=== PATIENT | female | born 1990 | race Caucasian/White ===

== ENCOUNTER 2021-08-04 16:49 | Emergency (ER) | payer MEDICAID ==
--- NOTE | 2021-08-04 16:53 | EDM.PDOC ---
ED HPI GENERAL MEDICAL PROBLEM - General Chief Complaint: Respiratory Problem Stated Complaint: SOB Time Seen by Provider: 08/04/21 17:20 Source of Information: Reports: Patient History Limitations: Reports: No Limitations - Related Data Allergies Allergy/AdvReac Type Severity Reaction Status Date / Time No Known Allergies Allergy Verified 08/04/21 17:10 Home Meds: Home Meds NK [No Known Home Meds] 08/04/21 [History] Course - Vital Signs Last Recorded V/S: Last Vital Signs Temp 97.6 F 08/04/21 17:08 Pulse 92 08/04/21 17:08 Resp 16 08/04/21 17:08 BP 144/84 H 08/04/21 17:08 Pulse Ox 98 08/04/21 17:08 Departure - Departure Disposition: Home, Self-Care 01 Clinical Impression: Anxiety about health Dyspnea Qualifiers: Dyspnea type: unspecified Qualified Code(s): R06.00 - Dyspnea, unspecified - Discharge Information Instructions: Managing Anxiety, Adult Forms: ED Department Discharge Care Plan Goals: I would strongly hope you consider filling your medication and taking as d irected. Recheck in the next 2 to 4 days if not improving satisfactorily. Return anytime if worsening such as marked increase in shortness of breath, increasing pain, or fever. Sepsis Event Note (ED) - Focused Exam Vital Signs: Vital Signs Temp Pulse Resp BP Pulse Ox 08/04/21 17:08 97.6 F 92 16 144/84 H 98
--- NOTE | 2021-08-04 17:35 | EDM.PDOC ---
ED HPI GENERAL MEDICAL PROBLEM - General Chief Complaint: Respiratory Problem Stated Complaint: SOB Time Seen by Provider: 08/04/21 17:20 Source of Information: Reports: Patient History Limitations: Reports: No Limitations - History of Present Illness INITIAL COMMENTS - FREE TEXT/NARRATIVE: 31-year-old female with chronic anxiety, is on day 9 of her recent Covid infection with struggling with some chest pressure and unable to take a full breath today so came in to be checked. She was started on fluoxetine in the last 1 to 2 weeks for anxiety but has not filled it, she is not sure if she wants to take it. No cough, no fevers or chills, no other symptoms. Onset: Unknown/Unsure Duration: Waxing/Waning Location: Reports: Other (Chest pressure) Improves with: Reports: None Worsens with: Reports: None Associated Symptoms: Reports: Other (Only other symptom is persistent anxiety about health) - Related Data Allergies Allergy/AdvReac Type Severity Reaction Status Date / Time No Known Allergies Allergy Verified 08/04/21 17:10 Home Meds: Home Meds NK [No Known Home Meds] 08/04/21 [History] Social & Family History - Tobacco Use Tobacco Use Status *Q: Never Tobacco User - Recreational Drug Use Recreational Drug Use: No ED ROS GENERAL - Review of Systems Review Of Systems: See Below Constitutional: Denies: Fever, Chills HEENT: Reports: No Symptoms Respiratory: Reports: No Symptoms. Denies: Shortness of Breath (Patient does not feel short of breath, just that she cannot take a deep breath) Cardiovascular: Reports: Other (See HPI) GI/Abdominal: Reports: No Symptoms Musculoskeletal: Reports: No Symptoms Skin: Reports: No Symptoms Neurological: Reports: No Symptoms. Denies: Headache, Weakness Psychiatric: Reports: Anxiety ED EXAM, GENERAL - Physical Exam Exam: See Below Exam Limited By: No Limitations General Appearance: Alert, No Apparent Distress, Other (Patient looks completely comfortable, vitals are normal respirations 16 without any laboring) Head: Atraumatic Neck: Non-Tender Respiratory/Chest: No Respiratory Distress, Lungs Clear Cardiovascular: Normal Peripheral Pulses, Regular Rate, Rhythm, No Murmur GI/Abdominal: Soft, Non-Tender Extremities: Normal Inspection. No: Pedal Edema Neurological: Alert, Oriented Psychiatric: Anxious Skin Exam: Warm, Dry Course - Vital Signs Last Recorded V/S: Last Vital Signs Temp 97.6 F 08/04/21 17:08 Pulse 92 08/04/21 17:08 Resp 16 08/04/21 17:08 BP 144/84 H 08/04/21 17:08 Pulse Ox 98 08/04/21 17:08 - Re-Assessments/Exams Free Text/Narrative Re-Assessment/Exam: 08/06/21 07:20 She may be having some slight lingering symptoms from Covid but this is undoubtedly exacerbated by her chronic anxiety. She was reassured and it was strongly recommended that she start her fluoxetine as prescribed. She can return if worsening such as fever, increased shortness of breath or cough. Departure - Departure Time of Disposition: 17:36 Disposition: Home, Self-Care 01 Clinical Impression: Anxiety about health Dyspnea Qualifiers: Dyspnea type: unspecified Qualified Code(s): R06.00 - Dyspnea, unspecified - Discharge Information Instructions: Managing Anxiety, Adult Referrals: PCP,None [Primary Care Provider] - Forms: ED Department Discharge Care Plan Goals: I would strongly hope you consider filling your medication and taking as directed. Recheck in the next 2 to 4 days if not improving satisfactorily. Return anytime if worsening such as marked increase in shortness of breath, increasing pain, or fever. Sepsis Event Note (ED) - Evaluation Sepsis Screening Result: No Definite Risk
== END 2021-08-04 17:40 | disposition home or self-care (01) ==
LOC: JP.ED 16:49
DX: F41.9 Anxiety disorder, unspecified (principal); R06.00 Dyspnea, unspecified
CPT/HCPCS: 99284